=== PATIENT | female | born 1965 | race Caucasian/White ===

== ENCOUNTER 2020-08-05 06:28 | Day surgery (SDC) | payer BC ==
[2020-08-05] MEDS ORDERED: Propofol 200 MG/20 ML SDV IV ONE (06:29)
[2020-08-05] MEDS ORDERED: Dextrose 5%-0.45% NaCl 1,000 ML IV SCH (07:00)
--- NOTE | 2020-08-05 10:07 | OR ---
DATE: 08/05/2020 PROCEDURE: Total colonoscopy. INSTRUMENT USED: [id number]-H190DL Olympus video colonoscope. PREMEDICATIONS: Provided by Anesthesiology Services. INDICATIONS: The patient with persistent lower abdominal pain, unexplained and not responsive to medical measures. Colonoscopic examination is done for detection of any polypoid lesions and removal, endoscopic hemostasis therapy if needed. DESCRIPTION OF PROCEDURE: The procedure was done under pulse oximetry, BP recording, and automotive hardware engineer. Initial rectal exam was unremarkable. Rigid anoscopy was normal. The colonoscope was passed with ease up to the ileocecal area. Photographs were taken of the normal-appearing cecum, identified by landmarks of appendiceal orifice and double-bulged ileocecal folds. No bleeding was noted from any of the visualized areas at the commencement of the examination. The bowel preparation was found to be adequate. [place] scale 2 in all the regions. Total score 6. No stricture. No vascular ectasia. No large isolated ulcerations seen. No evidence of diffuse inflammatory bowel disease in the form of friability, contact bleeding, or ulcerations. No polyp or tumor mass identified. Probing the proximal sides of folds and flexures using adequate distention and clearing of the stool material, withdrawal of the scope was made, cecum to rectum time over 6 minutes. No bleeding was noted from any of the visualized areas at the completion of examination. IMPRESSION: Normal study. The patient tolerated the procedure well. [facility] /[id number]
== END 2020-08-05 10:50 | disposition home or self-care (01) ==
LOC: DL.ENDO 06:28
PROVIDERS: ATTEND Internal Medicine Gastroenterology
DX: R10.30 Lower abdominal pain, unspecified (principal); E66.09 Other obesity due to excess calories; I10 Essential (primary) hypertension; E78.5 Hyperlipidemia, unspecified; Z98.890 Other specified postprocedural states; Z90.49 Acquired absence of other specified parts of digestive tract; Z88.8 Allergy status to other drugs, medicaments and biological substances; Z68.34 Body mass index [BMI] 34.0-34.9, adult
CPT/HCPCS: 45378; J2704; J7042

== ENCOUNTER 2020-10-22 11:19 | Emergency (ER) | payer BC ==
[2020-10-22] MEDS ORDERED: HYDROmorphone 1 MG/ML Syringe IVPUSH ONE ×4 (11:46→14:28)
--- NOTE | 2020-10-22 11:49 | EDM.PDOC ---
<Beny Ferguson Juliana - Last Filed: 10/22/20 11:44> ED HPI GENERAL MEDICAL PROBLEM - General Chief Complaint: Abdominal Pain Stated Complaint: HAD LAPROSCOPIC SURGERY / IN SEVERE PAIN Time Seen by Provider: 10/22/20 11:34 Source of Information: Reports: Patient History Limitations: Reports: No Limitations - History of Present Illness INITIAL COMMENTS - FREE TEXT/NARRATIVE: 54 y/o F c/o diffuse abd pn since her surgery Sunday. Pt states she had laparoscopic surgery Sunday to remove her ovaries. The surgery was unsuccessful and since then the pts abd has become more distended with increased pain. The pain is diffuse over the abd, constant, sharp in nature and 10/10. She reports no bowel movements since Sunday night and has not been passing gas. Denies fever, cough, chills, drugs, etoh, cp, db, extremity pn. Onset: Gradual Duration: Day(s): Location: Reports: Abdomen Severity: Severe Improves with: Reports: None Worsens with: Reports: Movement - Related Data Allergies Allergy/AdvReac Type Severity Reaction Status Date / Time acetaminophen [From Percocet] Allergy Cannot Verified 10/22/20 11:39 Remember oxycodone [From Percocet] Allergy Cannot Verified 10/22/20 11:39 Remember Home Meds: Home Meds Albuterol Sulfate [Albuterol Sulfate Hfa] 2 puff IH .Q4HR PRN 08/04/20 [History] Aloe Vera/Sodium Chloride [[place] Saline Nasal Gel] 1 applic TRICIA QID PRN 08/04/20 [History] Budesonide/Formoterol Fumarate [Symbicort 160-4.5 Mcg Inhaler] 2 puff IH BID 08/04/20 [History] Clindamycin Phosphate [Cleocin T 1% Gel] 30 gm TP .BID PRN PRN 08/04/20 [History] Doxycycline Hyclate 100 mg PO BID 08/04/20 [History] Doxylamine Succinate [Unisom Sleep Aid] 25 mg PO BEDTIME 08/04/20 [History] Esomeprazole [NexIUM] 20 mg PO DAILY 08/04/20 [History] Fluticasone Propionate [Flonase Allergy Relief] 2 spray NS DAILY 08/04/20 [History] Losartan/Hydrochlorothiazide [Losartan-HCTZ 50-12.5 MG] 1 each PO DAILY 08/04/20 [History] Lysine 500 mg PO DAILY 08/04/20 [History] Rosuvastatin [Crestor] 5 mg PO DAILY 08/04/20 [History] valACYclovir [Valtrex] 1,000 mg PO .PRN PRN 08/04/20 [History] Past Medical History HEENT History: Reports: Allergic Rhinitis Cardiovascular History: Reports: Hypertension Respiratory History: Reports: COPD, Other (See Below) Other Respiratory History: LUNG NODULE, SOLITARY Gastrointestinal History: Reports: Irritable Bowel Syndrome Genitourinary History: Reports: None 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: Reports: Endometriosis, Musculoskeletal History: Reports: Arthritis Neurological History: Reports: Cerebral Aneurysms Psychiatric History: Reports: Anxiety, Depression Endocrine/Metabolic History: Reports: Other (See Below) Other Endocrine/Metabolic History: HYPERLIPIDEMIA Hematologic History: Reports: Other (See Below) Other Hematologic History: LEUKOCYTOSIS Immunologic History: Reports: None Oncologic (Cancer) History: Reports: Squamous Cell Carcinoma Dermatologic History: Reports: Other (See Below) Other Dermatologic History: SUPPURATIVE HIDRADENITIS (ACNE INVERSA); ACTINIC KERATOSIS; SKIN TAG - Infectious Disease History Infectious Disease History: Reports: Chicken Pox - Past Surgical History Head Surgeries/Procedures: Reports: Shunt HEENT Surgical History: Reports: None Cardiovascular Surgical History: Reports: None Respiratory Surgical History: Reports: None GI Surgical History: Reports: Cholecystectomy, Colonoscopy Female Surgical History: Reports: Section, Hysterectomy Endocrine Surgical History: Reports: None Neurological Surgical History: Reports: Other (See Below) Other Neurological Surgeries/Procedures: CSF SHUNT/CLIPS Musculoskeletal Surgical History: Reports: None Oncologic Surgical History: Reports: Other (See Below) Other Oncologic Surgeries/Procedures: LEFT LEG MOLE REMOVED Dermatological Surgical History: Reports: None Social & Family History - Family History Family Medical History: No Pertinent Family History - Caffeine Use Caffeine Use: Reports: Coffee, Soda ED ROS GENERAL - Review of Systems Review Of Systems: Comprehensive ROS is negative, except as noted in HPI. ED EXAM, GI/ABD - Physical Exam Exam: See Below General Appearance: Alert, Mild Distress Eyes: Bilateral: Normal Appearance Throat/Mouth: Normal Inspection, Normal Lips, Normal Teeth, Normal Oropharynx, Normal Voice, No Airway Compromise Head: Atraumatic, Normocephalic Neck: Normal Inspection, Supple, Non-Tender, Full Range of Motion Respiratory/Chest: No Respiratory Distress, Lungs Clear, Normal Breath Sounds, No Accessory Muscle Use, Chest Non-Tender Cardiovascular: Normal Peripheral Pulses, Regular Rate, Rhythm, No Edema, No Gallop, No JVD, No Murmur, No Rub GI/Abdominal Exam: Distended, Guarding, Other (absent bowel sounds) (Female) Exam: Deferred Rectal (Female) Exam: Deferred Back Exam: Normal Inspection Extremities: Normal Inspection, Normal Range of Motion, Non-Tender, Normal Capillary Refill, No Pedal Edema Neurological: Alert, Oriented Psychiatric: Anxious Skin Exam: Warm, Dry, Intact, Normal Color Departure - Departure Disposition: DC/Tfer to [facility] 02 Clinical Impression: Postoperative ileus Abdominal pain Qualifiers: Abdominal location: generalized Qualified Code(s): R10.84 - Generalized abdominal pain - Discharge Information Forms: Interfacility Transfer EMTALA Care Plan Goals: Discussed the patient's history, examination, lab and CT results with Dr Pathak. Dr. Pathak (Surgery in [place]). Dr. Pathak accepted the patient for direct admit to [facility] in [place]. The patient will be transported by [facility]. <Eligio Tong M - Last Filed: 10/22/20 14:27> Course - Vital Signs Last Recorded V/S: Last Vital Signs Temp 98.1 F 10/22/20 11:50 Pulse 120 H 10/22/20 11:50 Resp 18 10/22/20 11:50 BP 127/96 H 10/22/20 11:50 Pulse Ox 96 10/22/20 11:50 - Orders/Labs/Meds Orders: Active Orders 24 hr Category Date Time Status Peripheral IV Care [RC] . DIRECTED Care 10/22/20 12:01 Active CULTURE BLOOD [BC] Stat Lab 10/22/20 11:52 Received REFLEX LACTIC ACID YES OR NO [CHEM] Routine Lab 10/22/20 12:24 Received Sodium Chloride 0.9% [Saline Flush] Med 10/22/20 12:01 Active 10 ml FLUSH ASDIRECTED PRN Peripheral IV Insertion Adult [OM.PC] Routine Oth 10/22/20 12:01 Ordered Medication Orders Sodium Chloride (Sodium Chloride 0.9% 10 Ml Syringe) 10 ml FLUSH ASDIRECTED PRN PRN Reason: Keep Vein Open Labs: Laboratory Tests 10/22/20 10/22/20 10/22/20 Range/Units 11:29 11:52 11:52 WBC 4.3 L (5.0-10.0) 10^3/uL RBC 5.38 (4.2-5.4) 10^6/uL Hgb 15.5 (12.0-16.0) g/dL Hct 46.9 (37.0-47.0) % MCV 87.2 (80-100) fL MCH 28.8 (27.0-34.0) pg MCHC 33.0 (33.0-35.0) g/dL Plt Count 390 (150-450) 10^3/uL Neut % (Auto) 76.5 H (42.2-75.2) % Lymph % (Auto) 14.3 L (20.5-50.1) % [place] % (Auto) 8.3 H (2-8) % Eos % (Auto) 0.2 L (1.0-3.0) % Baso % (Auto) 0.7 (0.0-1.0) % Sodium 137 (136-145) mmol/L Potassium 3.3 L (3.5-5.1) mmol/L Chloride 98 (98-107) mmol/L Carbon Dioxide 25 (21-32) mmol/L Anion Gap 17.3 H (7-13) mEq/L BUN 22 H (7-18) mg/dL Creatinine 1.77 H (0.55-1.02) mg/dL Est Cr Clr Drug Dosing 31.93 mL/min Estimated GFR (MDRD) 30 BUN/Creatinine Ratio 12.4 (No establ ref range) Glucose 131 H (70-99) mg/dL Lactic Acid (0.4-2.0) mmol/L Calcium 9.2 (8.5-10.1) mg/dL Total Bilirubin 1.8 H (0.2-1.0) mg/dL AST 22 (15-37) U/L ALT 38 (14-59) U/L Alkaline Phosphatase 90 (46-116) U/L Creatine Kinase (16-191) U/L Total Protein 7.1 (6.4-8.2) g/dL Albumin 3.1 L (3.4-5.0) g/dL Globulin 4.0 Albumin/Globulin Ratio 0.78 Urine Color Dark yellow (YELLOW) Urine Appearance Slightly cloudy (CLEAR) Urine pH 6.0 (5.0-9.0) Ur Specific [place] >= 1.030 (1.005-1.030) Urine Protein 100 H (NEGATIVE) Urine Glucose (UA) Negative (NEGATIVE) Urine Ketones Negative (NEGATIVE) Urine Occult Blood Trace-intact H (NEGATIVE) Urine Nitrite Negative (NEGATIVE) Urine Bilirubin Small H (NEGATIVE) Urine Urobilinogen 1.0 (0.2-1.0) mg/dL Ur Leukocyte Esterase Negative (NEGATIVE) U Hyaline Cast (Auto) Few Urine RBC 20-30 H (0-5) /HPF Urine WBC 0-5 (0-5/HPF) /HPF Ur Epithelial Cells Moderate H (NOT SEEN) /HPF Amorphous Sediment Moderate H (NOT SEEN) /HPF Urine Bacteria Few (0-FEW/HPF) /HPF Urine Mucus Many H (NOT SEEN) /LPF 10/22/20 10/22/20 Range/Units 11:52 11:52 WBC (5.0-10.0) 10^3/uL RBC (4.2-5.4) 10^6/uL Hgb (12.0-16.0) g/dL Hct (37.0-47.0) % MCV (80-100) fL MCH (27.0-34.0) pg MCHC (33.0-35.0) g/dL Plt Count (150-450) 10^3/uL Neut % (Auto) (42.2-75.2) % Lymph % (Auto) (20.5-50.1) % [place] % (Auto) (2-8) % Eos % (Auto) (1.0-3.0) % Baso % (Auto) (0.0-1.0) % Sodium (136-145) mmol/L Potassium (3.5-5.1) mmol/L Chloride (98-107) mmol/L Carbon Dioxide (21-32) mmol/L Anion Gap (7-13) mEq/L BUN (7-18) mg/dL Creatinine (0.55-1.02) mg/dL Est Cr Clr Drug Dosing mL/min Estimated GFR (MDRD) BUN/Creatinine Ratio (No establ ref range) Glucose (70-99) mg/dL Lactic Acid 4.4 H* (0.4-2.0) mmol/L Calcium (8.5-10.1) mg/dL Total Bilirubin (0.2-1.0) mg/dL AST (15-37) U/L ALT (14-59) U/L Alkaline Phosphatase (46-116) U/L Creatine Kinase 441 H (16-191) U/L Total Protein (6.4-8.2) g/dL Albumin (3.4-5.0) g/dL Globulin Albumin/Globulin Ratio Urine Color (YELLOW) Urine Appearance (CLEAR) Urine pH (5.0-9.0) Ur Specific [place] (1.005-1.030) Urine Protein (NEGATIVE) Urine Glucose (UA) (NEGATIVE) Urine Ketones (NEGATIVE) Urine Occult Blood (NEGATIVE) Urine Nitrite (NEGATIVE) Urine Bilirubin (NEGATIVE) Urine Urobilinogen (0.2-1.0) mg/dL Ur Leukocyte Esterase (NEGATIVE) U Hyaline Cast (Auto) Urine RBC (0-5) /HPF Urine WBC (0-5/HPF) /HPF Ur Epithelial Cells (NOT SEEN) /HPF Amorphous Sediment (NOT SEEN) /HPF Urine Bacteria (0-FEW/HPF) /HPF Urine Mucus (NOT SEEN) /LPF Meds: Medications Generic Name Dose Route Start Last Admin Trade Name Freq PRN Reason Stop Dose Admin Sodium Chloride 10 ml 10/22/20 12:01 Sodium Chloride 0.9% 10 Ml Syringe FLUSH ASDIRECTED PRN Keep Vein Open Discontinued Medications Generic Name Dose Route Start Last Admin Trade Name Freq PRN Reason Stop Dose Admin Hydromorphone HCl 1 mg 10/22/20 11:46 10/22/20 12:02 Hydromorphone 1 Mg/Ml Syringe IVPUSH 10/22/20 11:47 1 mg ONETIME ONE Administration Hydromorphone HCl 1 mg 10/22/20 12:42 10/22/20 12:52 Hydromorphone 1 Mg/Ml Syringe IVPUSH 10/22/20 12:43 1 mg ONETIME ONE Administration Hydromorphone HCl 1 mg 10/22/20 13:12 10/22/20 13:24 Hydromorphone 1 Mg/Ml Syringe IVPUSH 10/22/20 13:13 1 mg ONETIME ONE Administration Sodium Chloride 1,000 mls @ 999 mls/hr 10/22/20 11:56 10/22/20 12:02 Normal Saline IV 10/22/20 12:56 999 mls/hr .BOLUS ONE Administration Sodium Chloride 1,000 mls @ 999 mls/hr 10/22/20 12:50 10/22/20 12:52 Normal Saline IV 10/22/20 13:50 999 mls/hr .BOLUS ONE Administration Ondansetron HCl 4 mg 10/22/20 11:56 10/22/20 12:02 Ondansetron 4 Mg/2 Ml Sdv IVPUSH 10/22/20 11:57 4 mg ONETIME ONE Administration - Re-Assessments/Exams Free Text/Narrative Re-Assessment/Exam: 10/22/20 14:23 The patient was seen and evaluated by myself during the visit. I agree with the assessment an plan. Departure - Departure Time of Disposition: 14:15 Condition: Serious - Discharge Information *PRESCRIPTION DRUG MONITORING PROGRAM REVIEWED*: Not Applicable *COPY OF PRESCRIPTION DRUG MONITORING REPORT IN PATIENT SVETLANA: Not Applicable Sepsis Event Note (ED) - Focused Exam Vital Signs: Vital Signs Temp Pulse Resp BP Pulse Ox 10/22/20 11:50 98.1 F 120 H 18 127/96 H 96 - My Orders Last 24 Hours: My Active Orders 10/22/20 11:52 CULTURE BLOOD [BC] Stat 10/22/20 12:01 Peripheral IV Care [RC] . DIRECTED Sodium Chloride 0.9% [Saline Flush] 10 ml FLUSH ASDIRECTED PRN Peripheral IV Insertion Adult [OM.PC] Routine 10/22/20 12:24 REFLEX LACTIC ACID YES OR NO [CHEM] Routine - Assessment/Plan Last 24 Hours: My Active Orders 10/22/20 11:52 CULTURE BLOOD [BC] Stat 10/22/20 12:01 Peripheral IV Care [RC] . DIRECTED Sodium Chloride 0.9% [Saline Flush] 10 ml FLUSH ASDIRECTED PRN Peripheral IV Insertion Adult [OM.PC] Routine 10/22/20 12:24 REFLEX LACTIC ACID YES OR NO [CHEM] Routine
[2020-10-22] MEDS ORDERED: Sodium Chloride 0.9% 1,000 ML IV ONE ×2 (11:56→12:50)
[2020-10-22] MEDS ORDERED: Ondansetron 4 MG/2 ML SDV IVPUSH ONE (11:56)
[2020-10-22] MEDS ORDERED: Sodium Chloride 0.9% 10 ML Syringe FLUSH PRN (12:01)
[2020-10-22 12:18] LABS: ANION GAP 17.3 mEq/L (7-13)
--- NOTE | 2020-10-22 13:40 | CT ---
EXAMINATION: Abdomen Pelvis wo Cont SEX: Female AGE: 54 years CLINICAL HISTORY: 54-year-old 208 pound female complaining of DIFFUSE ABDOMINAL PAIN. Previous cholecystectomy and apparent cholecystostomy tube. Hysterectomy without oophorectomy. Note: Patient had laparoscopic evaluation on Sunday (2 days ago). Normal CBC. CT exam 03 August 2020 for this ex-smoker revealed "cholecystectomy; mid epigastric percutaneous drainage tube; and hysterectomy". Scan technique: Volume acquisition of data screening unenhanced CT scan abdomen and pelvis obtained with the patient lying supine on the Siemens multislice scanner [place], [place]. All data archived in the PACS system for storage, reformatting axial/sagittal/coronal planes and study. Comparison CT exam 03 August 2020. Interpretation: Abnormal. 1. Free intraperitoneal air. 2. New evidence of intraperitoneal fluid in the right paracolic gutter. 3. Midepigastric drainage tube extending to the right upper quadrant gallbladder fossa (no gallbladder identified). Homogeneous normal liver density. No sign of intra or extrahepatic biliary duct dilatation. 4. Incidentally noted diverticula in the ascending right and sigmoid colon (LLQ). Significance? 5. No sign of mechanical obstruction large or small bowel. No new abdominal or pelvic mass lesion. No mesenteric or retroperitoneal lymphadenopathy. 6. Platelike atelectasis RLL. Normal cardiac silhouette. No pericardial or pleural effusions. Note: 1 cm diameter parenchymal lung nodule LLL not apparent on one August 2020 exam. Significance? 7. Dense calcifications normal caliber aortoiliac vessels. No aneurysm or dissection. Chronic severe L5-S1 disc.
== END 2020-10-22 14:47 ==
LOC: DL.ED 11:19
DX: G89.18 Other acute postprocedural pain (principal); R10.84 Generalized abdominal pain; J44.9 Chronic obstructive pulmonary disease, unspecified; I10 Essential (primary) hypertension; Z88.5 Allergy status to narcotic agent; Z79.899 Other long term (current) drug therapy
CPT/HCPCS: 36415; 74176; 80053; 81001; 82550; 83605; 85025; 87040; 96374; 96375; 96376; 99284; 99285-25; J1170; J2405; J7030